=== PATIENT | male | born 1990 | race Caucasian/White ===

== ENCOUNTER 2019-02-19 19:47 | Emergency (ER) | payer SELFPAY ==
[~2019-02-19] VITALS: Ht 175.3 cm; Wt 90.7 kg
[2019-02-19 19:55] VITALS: BP 124/77
--- NOTE | 2019-02-19 19:57 | NUR ---
VISUAL ACUITY BOTH EYE, 20/13 , LT EYE 20 /15 , RT 20/15
--- NOTE | 2019-02-19 19:58 | NUR ---
TO LOBBY A/W BED AMBULATORY
--- NOTE | 2019-02-19 21:25 | NUR ---
PT AMBULATED TO [facility].
--- NOTE | 2019-02-19 21:44 | NUR ---
PT BIB SELF FOR RT EYE PAIN FOR 2 DAYS. PT STATES HE HAS FOREIGN BODY TO EYE AND TRIED TO FLUSH EYE BUT WAS UNABLE TO REMOVE OBJECT. NO OBJECT VISULAZED TO EYE AT THIS TIME. REDNESS TO SCLERA. PT STATES HE HAS BLURRY VISION. LEFT EYE SCLERA MILDLY REDDENED WELL. PT AWAKE AND ALERT IN NO ACUTE DISTRESS SITTING IN CHAIR.
[2019-02-19] MEDS ORDERED: TETRACAINE HCL/PF 0.5% OPTH 4 ML BTL ONE (21:59)
[2019-02-19] MEDS ORDERED: FLUORESCEIN OPTH STRIP 1 MG ONE (21:59)
--- NOTE | 2019-02-19 23:12 | NUR ---
PT TAKEN TO ER BED 05
[2019-02-19] MEDS ORDERED: TETRACAINE HCL/PF 0.5% OPTH 4 ML BTL OP ONE (23:15)
--- NOTE | 2019-02-19 23:38 | NUR ---
DR MAGALLANES AT BEDSIDE EXAMINING PT.
--- NOTE | 2019-02-20 00:05 | NUR ---
EMT APPLIED KAYLA LENS TO EYE W/ 500CC NS FLUSH.
--- NOTE | 2019-02-20 00:15 | NUR ---
FLUSH COMPLETED, PT TOLERATED WELL, STATES EYE FEELS BETTER, DR MAGALLANES MADE AWARE.
[2019-02-20] MEDS ORDERED: ERYTHROMYCIN 0.5% OPTH OINT 1 GM TUBE OP ONE (02:05)
--- NOTE | 2019-02-20 02:12 | NUR ---
PT SITTING IN BED WITH NO SIGNS OF DISTRESS. CALM, NO PAIN REPORTED AT THIS TIME.
[2019-02-20] MEDS ORDERED: ERYTHROMYCIN 0.5% OPTH OINT 1 GM TUBE ONE (02:19)
[2019-02-20 02:28] VITALS: BP 125/70
--- NOTE | 2019-02-20 02:28 | NUR ---
Patient discharged with v/s stable. Written and verbal after care instructions given and explained. Patient verbalized understanding. Ambulatory with steady gait. All questions addressed prior to discharge. Advised to follow up with PMD.
== END 2019-02-20 02:28 | disposition home or self-care (01) ==
LOC: MED 19:47
DX: T15.01XA Foreign body in cornea, right eye, initial encounter (principal); Z88.0 Allergy status to penicillin; X58.XXXA Exposure to other specified factors, initial encounter; Y93.89 Activity, other specified; Y92.89 Other specified places as the place of occurrence of the external cause; Y99.8 Other external cause status
CPT/HCPCS: 99283